=== PATIENT | female | born 1970 | race Caucasian/White ===

== ENCOUNTER 2017-11-17 15:14 | Emergency (ER) | payer MEDICAID ==
[~2017-11-17] VITALS: Ht 162.6 cm; Wt 85.7 kg
[2017-11-17 15:44] LABS: Urine WBC None Seen /hpf (0 - 5)
[2017-11-17 16:13] LABS: Albumin 4.5 g/dL (3.4-5.0); BUN/Creatinine Ratio 10.5; Potassium 4.7 mmol/L (3.5-5.1)
[2017-11-17 16:15] LABS: Basophils # (auto) 0 uL; Basophils % (auto) 0.7 % (0.0-2.0); Bilirubin, Total 0.2 mg/dL (0.2-1.0); Eosinophils # (auto) 0.1 uL; Eosinophils % (auto) 0.9 % (0.0-7.0); Hematocrit 41.9 % (36.0-46.0); Hemoglobin 14.3 g/dL (12.2-16.2); Lymphocytes # (auto) 2.6 uL; Mean Corpuscular Hemoglobin 33.7 pg (28.0-32.0); Mean Corpuscular Hgb Conc. 34.3 g/dL (32.0-36.0); Mean Corpuscular Volume 98.3 fL (80.0-100.0); Monocytes # (auto) 0.5 uL; Monocytes % (auto) 7.2 % (0.0-12.0); Neutrophils # (auto) 3.3 uL; Neutrophils % (auto) 51.2 % (37.0-80.0); Nucleated Red Blood Cells % 0.1 %; Platelet Count (auto) 210 10^3/uL (140-450); Red Blood Cells 4.26 10^6/uL (4.0-5.20); Red Cell Distribution Width 12.9 % (11.8-14.3); White Blood Cell 6.5 10^3/uL (4.4-10.8)
[2017-11-17 16:16] LABS: Urine Bacteria FEW /hpf (None Seen); Urine Blood Negative /uL (Negative); Urine Specific Gravity 1.002 (1.001-1.035)
[2017-11-17] MEDS ORDERED: LACTULOSE 20Gm/30ML SOLN PO ONE (19:00)
[2017-11-17] MEDS ORDERED: ONDANSETRON ODT 4 MG TAB PO ONE (19:00)
[2017-11-17 19:17] VITALS: BP 162/87
== END 2017-11-17 19:22 | disposition home or self-care (01) ==
LOC: ER 15:19
DX: S33.5XXA Sprain of ligaments of lumbar spine, initial encounter (principal); K59.00 Constipation, unspecified; R11.0 Nausea; Z88.0 Allergy status to penicillin; Z88.8 Allergy status to other drugs, medicaments and biological substances; X50.1XXA Overexertion from prolonged static or awkward postures, initial encounter; Y93.89 Activity, other specified; Y99.8 Other external cause status; Y92.89 Other specified places as the place of occurrence of the external cause
CPT/HCPCS: 36415; 74176; 80053; 81001; 85025; 99285; Q0162

== ENCOUNTER 2020-02-28 09:07 | Emergency (ER) | payer BC, MEDICAID ==
[~2020-02-28] VITALS: Ht 162.6 cm; Wt 83.9 kg
[2020-02-28 09:33] VITALS: BP 118/68
[2020-02-28] MEDS ORDERED: KETOROLAC TROMETH 60MG/2ML VIAL IM ONE (10:30)
== END 2020-02-28 11:25 | disposition home or self-care (01) ==
LOC: ER 09:07
DX: G43.909 Migraine, unspecified, not intractable, without status migrainosus (principal)
CPT/HCPCS: 96372; 99283; J1885

== ENCOUNTER 2020-11-10 02:15 | Emergency (ER) | payer BC, MEDICAID ==
[~2020-11-10] VITALS: Ht 162.6 cm; Wt 90.7 kg
[2020-11-10 03:24] VITALS: BP 117/47
== END 2020-11-10 04:14 | disposition home or self-care (01) ==
LOC: ER 02:22
DX: S90.421A Blister (nonthermal), right great toe, initial encounter (principal); L08.9 Local infection of the skin and subcutaneous tissue, unspecified; L03.031 Cellulitis of right toe; E66.9 Obesity, unspecified; Z68.34 Body mass index [BMI] 34.0-34.9, adult; Z90.710 Acquired absence of both cervix and uterus; Z90.89 Acquired absence of other organs; Z88.0 Allergy status to penicillin; X58.XXXA Exposure to other specified factors, initial encounter; Y93.89 Activity, other specified; Y92.89 Other specified places as the place of occurrence of the external cause; Y99.8 Other external cause status

== ENCOUNTER 2020-12-02 04:03 | Emergency (ER) | payer BC, MEDICAID ==
[~2020-12-02] VITALS: Ht 162.6 cm; Wt 88.5 kg
[2020-12-02] MEDS ORDERED: methylPREDNISolone SOD SUCC 125 MG/2 ML VL IM ONE (04:30)
[2020-12-02 05:01] VITALS: BP 144/99
== END 2020-12-02 05:51 | disposition home or self-care (01) ==
LOC: ER 04:03
DX: T78.40XA Allergy, unspecified, initial encounter (principal); E66.9 Obesity, unspecified; Z68.33 Body mass index [BMI] 33.0-33.9, adult; Z90.710 Acquired absence of both cervix and uterus; Z90.89 Acquired absence of other organs; Z88.0 Allergy status to penicillin; X58.XXXA Exposure to other specified factors, initial encounter
CPT/HCPCS: 96372; 99283; J2930

== ENCOUNTER 2021-03-01 06:21 | Emergency (ER) | payer BC, MEDICAID ==
[~2021-03-01] VITALS: Ht 162.6 cm; Wt 86.2 kg
[2021-03-01 07:35] VITALS: BP 119/71
[2021-03-01] MEDS ORDERED: methylPREDNISolone SOD SUCC 125 MG/2 ML VL IM ONE (08:00)
[2021-03-01] MEDS ORDERED: cefTRIAXone SOD 1,000 MG VL IM ONE (08:15)
== END 2021-03-01 08:36 | disposition home or self-care (01) ==
LOC: ER 06:21
DX: U07.1 COVID-19 (principal); J06.9 Acute upper respiratory infection, unspecified; Z90.710 Acquired absence of both cervix and uterus; Z90.89 Acquired absence of other organs
CPT/HCPCS: 36415; 71045; 87426; 96372; 99284; J0696; J2930

== ENCOUNTER 2021-03-08 03:29 | Emergency (ER) | payer BC, MEDICAID ==
[~2021-03-08] VITALS: Ht 162.6 cm; Wt 86.2 kg
[2021-03-08] MEDS ORDERED: ACETAMINOPHEN 650 mg PER 20.3 mL UD PO ONE (05:00)
[2021-03-08] MEDS ORDERED: ACETAMINOPHEN 500 MG TAB PO ONE (05:15)
[2021-03-08 07:46] VITALS: BP 151/92
[2021-03-08] MEDS ORDERED: ACETAMINOPHEN/CODEINE#3 (300/30mg) TAB PO ONE (08:15)
[2021-03-08] MEDS ORDERED: ONDANSETRON ODT 4 MG TAB PO ONE (08:15)
== END 2021-03-08 08:41 | disposition home or self-care (01) ==
LOC: ER 03:29
DX: G43.909 Migraine, unspecified, not intractable, without status migrainosus (principal); Z90.89 Acquired absence of other organs; Z90.710 Acquired absence of both cervix and uterus
CPT/HCPCS: 99284; Q0162